=== PATIENT | female | born 1980 | race Caucasian/White ===

== ENCOUNTER 2016-08-24 21:21 | Emergency (ER) | payer SELFPAY ==
[2016-08-24] MEDS ORDERED: SODIUM CHLORIDE 0.9% 1,000 ML IV ONE (22:01)
[2016-08-24] MEDS ORDERED: MORPHINE 2 MG/ML SYRINGE IVP STA (22:01)
[2016-08-24] MEDS ORDERED: ONDANSETRON 4 MG/2 ML VIAL IVP STA (22:01)
[2016-08-24] MEDS ORDERED: ONDANSETRON 4 MG/2 ML VIAL ONE (22:05)
[2016-08-24] MEDS ORDERED: MORPHINE 2 MG/ML SYRINGE ONE (22:05)
[2016-08-25] MEDS ORDERED: MORPHINE 10 MG/ML VIAL IVP STA (00:03)
[2016-08-25] MEDS ORDERED: MORPHINE 2 MG/ML SYRINGE ONE (00:09)
[2016-08-25] MEDS ORDERED: diphenhydrAMINE INJ 50 MG/ML VIAL IVP STA (01:12)
[2016-08-25] MEDS ORDERED: methylPREDNISolone SUCCINATE 125 MG/2 ML VIAL IVP ONE (01:13)
[2016-08-25] MEDS ORDERED: diphenhydrAMINE INJ 50 MG/ML VIAL ONE (01:13)
[2016-08-25] MEDS ORDERED: methylPREDNISolone SUCCINATE 125 MG/2 ML VIAL IVP STA (01:13)
[2016-08-25] MEDS ORDERED: IOPAMIDOL-300 100 ML VIAL IVP ONE (01:21)
== END 2016-08-25 01:57 | disposition left against medical advice (07) ==
DX: Z76.5 Malingerer [conscious simulation] (principal); Z53.21 Procedure and treatment not carried out due to patient leaving prior to being seen by health care provider
CPT/HCPCS: 36415; 74177; 76830; 76856; 80053; 83605; 83690; 85025; 93976; 96374; 96375; 96376; 99283; 99284; Q9967